=== PATIENT | male | born 1935 | race Caucasian/White ===

== ENCOUNTER 2020-10-08 19:00 | Emergency (ER) | payer MEDICARE ==
[~2020-10-08 19:00] MED LIST: NORCO 5-325 TA1 EACH PO
[2020-10-08 20:24] LABS: HEMOGLOBIN 12.5 gm/dl (14.0-17.5); RED BLOOD COUNT 3.81 M/UL (4.20-5.50); WHITE BLOOD COUNT 6.6 K/UL (4.5-11.0)
[2020-10-08 20:56] LABS: BUN/CREATININE RATIO 13 (0-10)
== END 2020-10-08 23:45 | disposition left against medical advice (07) ==
LOC: ER1 19:00
PROVIDERS: Emergency Medicine
DX: I21.4 Non-ST elevation (NSTEMI) myocardial infarction (principal); Z20.822 Contact with and (suspected) exposure to COVID-19
CPT/HCPCS: 71045; 80053; 82550; 82553; 83605; 83690; 84484; 85025; 93005; 99285; Q9965; U0002

== ENCOUNTER 2021-07-12 09:33 | Emergency (ER) | payer MEDICARE ==
[2021-07-12 10:22] LABS: HEMOGLOBIN 12.9 gm/dl (14.0-17.5); RED BLOOD COUNT 3.93 M/UL (4.20-5.50); WHITE BLOOD COUNT 5.6 K/UL (4.5-11.0)
[2021-07-12] MEDS ORDERED: FLOMAX 0.4 MG0.4 MG PO (13:20)
== END 2021-07-12 13:35 | disposition home or self-care (01) ==
LOC: ER1 09:33
PROVIDERS: Student in an Organized Health Care Education/Training Program
DX: N40.0 Benign prostatic hyperplasia without lower urinary tract symptoms (principal); N32.89 Other specified disorders of bladder
CPT/HCPCS: 80053; 81001; 83690; 85025; 99284; Q9967

== ENCOUNTER 2021-09-14 12:07 | Emergency (ER) | payer MEDICARE ==
[~2021-09-14 12:07] MED LIST changes: +FLOMAX 0.4 MG0.4 MG PO
[2021-09-14] MEDS ORDERED: CEPHALEXIN500 M1 PO (12:34)
== END 2021-09-14 12:45 | disposition home or self-care (01) ==
LOC: ER1 12:07
DX: S60.561A Insect bite (nonvenomous) of right hand, initial encounter (principal); W57.XXXA Bitten or stung by nonvenomous insect and other nonvenomous arthropods, initial encounter
CPT/HCPCS: 99281

== ENCOUNTER 2021-12-10 10:07 | Emergency (ER) | payer MEDICARE ==
[~2021-12-10 10:07] MED LIST changes: +CEPHALEXIN500 M1 PO
[2021-12-10] MEDS ORDERED: MEDROL DOSEPAK 24 MG PO (11:46)
== END 2021-12-10 11:48 | disposition home or self-care (01) ==
LOC: ER1 10:07
DX: L23.7 Allergic contact dermatitis due to plants, except food (principal); E11.9 Type 2 diabetes mellitus without complications
CPT/HCPCS: 96372; 99283; J1100